=== PATIENT | male | born 1970 | race Caucasian/White ===

== ENCOUNTER 2017-05-13 22:53 | Emergency (ER) | payer SELFPAY ==
[2017-05-13 23:21] VITALS: BP 137/86; PULSE 80; TEMP 99.1; BMI 31.4
--- NOTE | 2017-05-13 23:22 | PDOC ---
History of Present Illness <Joy Tamez - Last Filed: 05/14/17 01:32> - History of Present Illness Initial Comments: 05/13/17 23:58 Mr. Thomas Terrazas is a 47 yo male w/ pmh of HTN who presents complaining of rash to groin. He reports he has had the rash for approximately 4 months. He went to [facility] to be evaluated approximately a month and a half ago and was given a cream, then returned a month ago for the same problem and received amoxicillin, a steroid, and 2 different creams (one of which was nystatin). He reports using all of it but that it has not had any effect. The patient denies chest pain, shortness of breath, headache and dizziness. Denies fever, chills, nausea, vomit, diarrhea and constipation. Denies dysuria, frequency, urgency and hematuria. Allergies:NKDA <Ramsey Lucas - Last Filed: 05/14/17 01:50> - General Chief Complaint: Rash Stated Complaint: PAIN Time Seen by Provider: 05/13/17 23:21 Past History <Joy Tamez - Last Filed: 05/14/17 01:32> - Suicide/Smoking/Psychosocial Hx Smoking History: Never smoked <Ramsey Lucas - Last Filed: 05/14/17 01:50> - Past Medical History Allergies/Adverse Reactions: Allergies Allergy/AdvReac Type Severity Reaction Status Date / Time No Known Allergies Allergy Verified 05/13/17 23:00 Home Medications: Ambulatory Orders Metformin HCl [Glucophage -] 500 mg PO BID #14 tablet 05/13/17 Metformin HCl [Glucophage] 500 mg PO BID #60 tablet 05/14/17 Nystatin Powder [Nystop Powder -] 1 applic TP BID #60 g 05/14/17 Terbinafine HCl [Lamisil] 250 mg PO DAILY #30 tablet 05/14/17 Review of Systems - Review of Systems Comments:: 05/14/17 00:00 GENERAL/CONSTITUTIONAL: No fever or chills. No weakness. HEAD, EYES, EARS, NOSE AND THROAT: No change in vision. No ear pain or discharge. No sore throat. CARDIOVASCULAR: No chest pain or shortness of breath RESPIRATORY: No cough, wheezing, or hemoptysis. GASTROINTESTINAL: No nausea, vomiting, diarrhea or constipation. GENITOURINARY: No dysuria, frequency, or change in urination. MUSCULOSKELETAL: No joint or muscle swelling or pain. No neck or back pain. SKIN: +1 1/2 months of Groin rash that he reports roasdo throughout the day NEUROLOGIC: No headache, vertigo, loss of consciousness, or change in strength/ sensation. ENDOCRINE: No increased thirst. No abnormal weight change HEMATOLOGIC/LYMPHATIC: No anemia, easy bleeding, or history of blood clots. ALLERGIC/IMMUNOLOGIC: No hives or skin allergy. <Ramsey Lucas - Last Filed: 05/14/17 01:50> *Physical Exam - Vital Signs Last Vital Signs Temp Pulse Resp BP Pulse Ox 99.1 F 80 20 137/86 100 05/13/17 23:01 05/13/17 23:01 05/13/17 23:01 05/13/17 23:01 05/13/17 23:01 <Joy Tamez - Last Filed: 05/14/17 01:32> - Vital Signs Last Vital Signs Temp Pulse Resp BP Pulse Ox 99.1 F 80 20 137/86 100 05/13/17 23:01 05/13/17 23:01 05/13/17 23:01 05/13/17 23:01 05/13/17 23:01 - Physical Exam Comments: 05/14/17 00:01 GENERAL: Awake, alert, and fully oriented, in no acute distress HEAD: No signs of trauma, normocephalic, atraumatic EYES: PERRLA, EOMI, sclera anicteric, conjunctiva clear ENT: Auricles normal inspection, hearing grossly normal, nares patent, oropharynx clear without exudates. Moist mucosa NECK: Normal ROM, supple, no lymphadenopathy, JVD, or masses LUNGS: No distress, speaks full sentences, clear to auscultation bilaterally HEART: Regular rate and rhythm, normal S1 and S2, no murmurs, rubs or gallops, peripheral pulses normal and equal bilaterally. ABDOMEN: Soft, nontender, normoactive bowel sounds. No guarding, no rebound. No masses EXTREMITIES: Normal inspection, Normal range of motion, no edema. No clubbing or cyanosis. NEUROLOGICAL: Cranial nerves II through XII grossly intact. Normal speech, normal gait, no focal sensorimotor deficits SKIN: +Impressive Austin-like rash involving entire groin and extending to thighs on either side. <Ramsey Lucas - Last Filed: 05/14/17 01:50> ED Treatment Course - Medications Given in the ED: ED Medications Discontinued Medications Generic Name Dose Route Start Last Admin Trade Name Jeremy PRN Reason Stop Dose Admin Fluconazole 200 mg 05/13/17 23:50 05/14/17 00:11 Diflucan - PO 05/13/17 23:51 200 mg ONCE ONE Administration Metformin HCl 1,000 mg 05/13/17 23:51 05/14/17 00:11 Glucophage - PO 05/13/17 23:52 1,000 mg ONCE ONE Administration <Joy Tamez - Last Filed: 05/14/17 01:32> Medical Decision Making - Medical Decision Making 05/14/17 00:02 Mr. Thomas Terrazas is a 47 yo male w/ pmh of HTN who presents with austin rash of groin. Patient also noted to have blood sugar of 200 via fingerstick. Suspect patient is diabetic and this is etiology of infection. Diflucan given for symptomatic treatment in conjunction with metformin. Will send temporary script to pt's pharmacy for metformin and have follow-up in residency clinic later this week. 05/14/17 01:49 Patient verbalized understanding and agreement and will follow-up with resident clinic as discussed. <Ramsey Lucas - Last Filed: 05/14/17 01:50> *DC/Admit/Observation/Transfer - Discharge Dispostion Admit: No <Joy Tamez - Last Filed: 05/14/17 01:32> <Ramsey Lucas - Last Filed: 05/14/17 01:50> Diagnosis at time of Disposition: Candidal balanitis Diabetes Qualifiers: Diabetes mellitus type: type 2 Diabetes mellitus complication status: with unspecified complications Diabetes mellitus penitentiary insulin use: without penitentiary use Qualified Code(s): E11.8 - Type 2 diabetes mellitus with unspecified complications - Discharge Dispostion Disposition: HOME Condition at time of disposition: Stable - Prescriptions Prescriptions: Metformin HCl [Glucophage] 500 mg PO BID #60 tablet Metformin HCl [Glucophage -] 500 mg PO BID #14 tablet Nystatin Powder [Nystop Powder -] 1 applic TP BID #60 g Terbinafine HCl [Lamisil] 250 mg PO DAILY #30 tablet - Referrals Referrals: Yovani Reeder MD [Staff Physician] - Delon Lind MD [Staff Physician] - - Patient Instructions Printed Discharge Instructions: Type 2 Diabetes, DI for [place] Print Language: ARMENIAN
[2017-05-13] MEDS ORDERED: FLUCONAZOLE 100 MG TABLET (UD) PO ONE (23:50)
[2017-05-13] MEDS ORDERED: metFORMIN HCL 500 MG TABLET (FP) PO ONE (23:51)
[2017-05-14] MEDS ORDERED: FLUCONAZOLE 100 MG TABLET (UD) ONE (00:05)
[2017-05-14] MEDS ORDERED: metFORMIN HCL 500 MG TABLET (FP) ONE (00:06)
--- NOTE | 2017-05-14 01:32 | PDOC ---
Attending Attestation - Resident Resident Name: Ramsey Lucas - ED Attending Attestation I have performed the following: I have examined & evaluated the patient, The case was reviewed & discussed with the resident, I agree w/resident's findings & plan - HPI HPI: 05/14/17 01:31 Pt comes with candidal infection on penis and entire groin. He is being treated with 2 types of steroids and antibiotics with no relief. Pt was also given a tiny tube of nystatin cream. - Physicial Exam PE: 05/14/17 01:32 Agree with resident exam. - Medical Decision Making 05/14/17 01:32 Pt has elevated blood sugar. Pt will be treated with glucophage and one dose of diflucan here and nystatin powder to go; he will also be given a month's supply of terbenafine. He needs to follow with PMD or with dermatology. He understands that he needs to control his blood sugar. 05/14/17 21:00
== END 2017-05-14 01:49 | disposition home or self-care (01) ==
LOC: JER 22:53
DX: B37.42 Candidal balanitis (principal); E11.9 Type 2 diabetes mellitus without complications; Z79.84 Long term (current) use of oral hypoglycemic drugs
CPT/HCPCS: 82962; 99281-25

== ENCOUNTER 2018-06-17 02:16 | Observation (INO) | payer OTHER ==
[2018-06-17 03:29] LABS: BASO % 0.5 % (0-2.0); EOS % 3.3 % (0-4.5); HEMATOCRIT 43.1 % (35.4-49); LYMPH % 46.7 % (8-40); MCH 30.2 pg (25.7-33.7); MCHC 34.8 g/dl (32.0-35.9); MEAN CELL VOLUME 86.7 fl (80-96); MEAN PLT VOLUME 8.9 fl (7.5-11.1); MONO % 5.8 % (3.8-10.2); NEUT % 43.7 % (42.8-82.8); PLATELET COUNT 191 K/MM3 (134-434); RBC 4.97 M/mm3 (4.00-5.60); RDW 13.3 % (11.9-15.9); WHITE BLOOD COUNT 6.6 K/mm3 (4.0-10.0)
[2018-06-17 03:32] VITALS: BMI 28.0
--- NOTE | 2018-06-17 03:33 | PDOC ---
History of Present Illness <Joy Tamez - Last Filed: 06/17/18 05:06> - General History Source: Family Exam Limitations: Clinical Condition - History of Present Illness Initial Comments: 06/17/18 03:27 Patient is a 48M with history of HTN, HLD here today complaining of altered mental status. Family states that their father drank a large amount of alcohol today in response to stress at home. They brought him into the ED because they were worried because he drank to the point where may not be breathing. Patient vomited. No history of suicidal ideation/attempts. No cardiac issues. Patient was brought in by private vehicle. <Delon Bains - Last Filed: 06/17/18 07:12> - General Chief Complaint: Alcohol intoxication Stated Complaint: INTOX Past History <Joy Tamez - Last Filed: 06/17/18 05:06> - Past Medical History COPD: No - Suicide/Smoking/Psychosocial Hx Smoking History: Never smoked Substance Use Type: None <Delon Bains - Last Filed: 06/17/18 07:12> - Past Medical History Allergies/Adverse Reactions: Allergies Allergy/AdvReac Type Severity Reaction Status Date / Time No Known Allergies Allergy Verified 05/13/17 23:00 Home Medications: Ambulatory Orders metFORMIN HCL [Glucophage -] 500 mg PO BID #14 tablet 05/13/17 Metformin HCl [Glucophage] 500 mg PO BID #60 tablet 05/14/17 Nystatin Powder [Nystop Powder -] 1 applic TP BID #60 g 05/14/17 Terbinafine HCl [Lamisil] 250 mg PO DAILY #30 tablet 05/14/17 Review of Systems - Review of Systems Able to Perform ROS?: No (2/2 clinical condition) <Delon Bains - Last Filed: 06/17/18 07:12> *Physical Exam - Vital Signs Last Vital Signs Temp Pulse Resp BP Pulse Ox 98.5 F 78 19 123/76 100 06/17/18 02:23 06/17/18 02:23 06/17/18 02:23 06/17/18 02:23 06/17/18 02:23 <Joy Tamez - Last Filed: 06/17/18 05:06> - Physical Exam Comments: 06/17/18 03:33 GENERAL: Somnolent, protecting airway, vomit on sweater HEAD: No signs of trauma, normocephalic, atraumatic EYES: PERRLA, sclera anicteric, conjunctiva clear ENT: Auricles normal inspection, hearing grossly normal, nares patent, oropharynx clear without exudates. Moist mucosa NECK: Normal ROM, supple, no lymphadenopathy, JVD, or masses LUNGS: No distress, increased lung sounds on right HEART: Regular rate and rhythm, normal S1 and S2, no murmurs, rubs or gallops, peripheral pulses normal and equal bilaterally. ABDOMEN: Soft, nontender, normoactive bowel sounds. No guarding, no rebound. No masses EXTREMITIES: Normal inspection, Normal range of motion, no edema. No clubbing or cyanosis. NEUROLOGICAL: No focal deficit noted, but patient not able to cooperate with exam. No facial droop, no effort with all limbs, no eye deviation SKIN: Warm, Dry, normal turgor, no rashes or lesions noted. <Delon Bains - Last Filed: 06/17/18 07:12> Moderate Sedation - Procedure Monitoring Vital Signs: Procedure Monitoring Vital Signs Temperature 98.5 F 06/17/18 02:23 Pulse Rate 78 06/17/18 02:23 Respiratory Rate 19 06/17/18 02:23 Blood Pressure 123/76 06/17/18 02:23 O2 Sat by Pulse Oximetry (%) 100 06/17/18 02:23 <Joy Tamez - Last Filed: 06/17/18 05:06> ED Treatment Course - LABORATORY CBC & Chemistry Diagram: 06/17/18 03:13 06/17/18 03:13 - ADDITIONAL ORDERS Additional order review: Laboratory Results 06/17/18 06/17/18 06/17/18 03:13 03:13 03:13 Sodium 139 Potassium 3.1 L Chloride 101 Carbon Dioxide 26 Anion Gap 12 BUN 17 Creatinine 1.1 Creat Clearance w eGFR > 60 POC Glucometer Random Glucose 154 H Calcium 8.2 L Total Bilirubin 0.1 L AST 32 ALT 43 Alkaline Phosphatase 119 H Creatine Kinase 409 H Troponin I < 0.02 Total Protein 7.5 Albumin 4.0 Salicylates < 1.7 L Acetaminophen < 2.0 L Alcohol, Quantitative 477.5 H Acetone, Qual Negative 06/17/18 02:44 Sodium Potassium Chloride Carbon Dioxide Anion Gap BUN Creatinine Creat Clearance w eGFR POC Glucometer 172 Random Glucose Calcium Total Bilirubin AST ALT Alkaline Phosphatase Creatine Kinase Troponin I Total Protein Albumin Salicylates Acetaminophen Alcohol, Quantitative Acetone, Qual 06/17/18 06/17/18 03:13 02:44 RBC 4.97 MCV 86.7 MCHC 34.8 RDW 13.3 MPV 8.9 Neutrophils % 43.7 Lymphocytes % 46.7 H Monocytes % 5.8 Eosinophils % 3.3 Basophils % 0.5 POC Glucometer 172 - Medications Given in the ED: ED Medications Discontinued Medications Generic Name Dose Route Start Last Admin Trade Name Bertrandq PRN Reason Stop Dose Admin Magnesium Sulfate 2 gm 06/17/18 04:00 06/17/18 04:07 Magnesium Sulfate IVPB 06/17/18 04:01 2 gm ONCE ONE Administration Sodium Chloride 1,000 ml 06/17/18 03:38 06/17/18 03:56 Normal Saline - IV 06/17/18 03:39 1,000 ml ONCE ONE Administration <Joy Tamez - Last Filed: 06/17/18 05:06> - LABORATORY CBC & Chemistry Diagram: 06/17/18 03:13 06/17/18 03:13 - ADDITIONAL ORDERS Additional order review: Laboratory Results 06/17/18 02:44 POC Glucometer 172 06/17/18 02:44 POC Glucometer 172 - RADIOLOGY Radiology Studies Ordered: Category Date Time Status CXRPORT [CHEST X-RAY PORTABLE*] [RAD] Stat Radiology 06/17/18 03:16 Ordered <Delon Bains - Last Filed: 06/17/18 07:12> Medical Decision Making - Medical Decision Making 06/17/18 03:36 Patient is 48M here today with ams, likely alcohol intoxication. Vitals normal and stable. Code serrano called due to concern about possible brain bleed. Delay in care caused by IT issues. No focal deficits on exam. FSG normal. Will evaluate with cbc, cmp, etoh, tylenol, salicylate levels, ekg, cxr. 06/17/18 07:11 CBC shows leukocytosis. CMP reassuring. ETOH nearly 500. CXR shows RLL infiltrate. Covered with ceftriaxone and metronidazole. CT head normal. D/w Dr Cox, accepted. <Delon Bains - Last Filed: 06/17/18 07:12> *DC/Admit/Observation/Transfer - Discharge Dispostion Decision to Admit order: Yes <Joy Tamez - Last Filed: 06/17/18 05:06> <Delon Bains - Last Filed: 06/17/18 07:12> Diagnosis at time of Disposition: Alcohol intoxication, Altered mental state, Aspiration pneumonia - Discharge Dispostion Condition at time of disposition: Guarded
[2018-06-17] MEDS ORDERED: SODIUM CHLORIDE 0.9% 500 ML INFUS.BAG IV ONE (03:38)
[2018-06-17 03:57] LABS: ALK PHOS 119 U/L (45-117); ANION GAP 12 MMOL/L (8-16); BILIRUBIN,TOTAL 0.1 mg/dL (0.2-1); BLOOD UREA NITROGEN 17 mg/dL (7-18); CALCIUM 8.2 mg/dL (8.5-10.1); CHLORIDE 101 mmol/L (98-107); CO2 26 mmol/L (21-32); CREATININE 1.1 mg/dL (0.55-1.3); GLUCOSE,RANDOM 154 mg/dL (74-106); POTASSIUM 3.1 mmol/L (3.5-5.1); SGOT/AST 32 U/L (15-37); SGPT/ALT 43 U/L (13-61); SODIUM 139 mmol/L (136-145); TOT PROT 7.5 g/dl (6.4-8.2)
[2018-06-17] MEDS ORDERED: MAGNESIUM SULF 50% (8.12 MEQ/2 ML-1 GM VIAL) IVPB ONE (04:00)
[2018-06-17] MEDS ORDERED: MAGNESIUM SULF 50% (8.12 MEQ/2 ML-1 GM VIAL) ONE (04:03)
[2018-06-17] MEDS ORDERED: KCL 10 MEQ IVPB 30 MEQ/300 ML INFUS.BAG IVPB ONE (04:08)
[2018-06-17] MEDS: KCL 10 MEQ IVPB 10 MEQ/100 ML INFUS.BAG IVPB SCH ×3 (04:22→06:10)
[2018-06-17 04:43] LABS: ACETONE SERUM NEGATIVE (NEGATIVE)
[2018-06-17] MEDS ORDERED: CEFTRIAXONE 1 GM/50 ML BAG ONE (05:02)
--- NOTE | 2018-06-17 05:07 | PDOC ---
Attending Attestation - Resident Resident Name: Delon Bains - ED Attending Attestation I have performed the following: I have examined & evaluated the patient, The case was reviewed & discussed with the resident, I agree w/resident's findings & plan - HPI HPI: 06/17/18 05:01 Pt had an argument with and began binge drinking today. Brought by his 2 adult kids and stepmom. Pt appers to be snoring and somnolent. Unclear if this is ETOH severe intox, stroke, or aspiration pneumonia. Pt has coarse breath sounds. 06/17/18 05:03 - Physicial Exam PE: 06/18/18 03:35 Agree with resident exam - Medical Decision Making 06/17/18 05:[address] done and it is normal. Pt has normal labs. His ETOH level is high. Pt has negative salicylate and negative ttylenol screen. Pt has CXR that shows congestive changes Heart Score/ECG Review - ECG Intrepretation Rhythm: Regular Rhythm - Redway Redway: Normal - P and OH Delta Wave(s) Present: No WPW: No - ST and T Early Repolarization: No Non Specific ST-T Wave changes: No Flattened T Waves: No Prolonged Q-T Interval: No - ECG Impressions Normal ECG: Yes Non-specific ST Elevation: No Ischemic Changes: No Bradycardia: No Torsades renny Pointes: No
--- NOTE | 2018-06-17 05:17 | PN ---
Teaching Attending Note Name of Resident: Luiz Wade ATTENDING PHYSICIAN STATEMENT I saw and evaluated the patient. I reviewed the resident's note and discussed the case with the resident. I agree with the resident's findings and plan as documented. SUBJECTIVE: Patient is a 48 year old man with PMH of NIDDM, HTN and HLD brought in by family for altered mental status and alcohol intoxication. Family states that their father drank a large amount of alcohol today following an argument with his . They brought him into the ER because they were worried because he drank to the point where may not be breathing. Patient vomited. No history of suicidal ideation/attempts. No cardiac issues. Patient was brought in by private vehicle. On arrival in the ER, a code serrano was called due to the suspicion for CVA. His head CT was negative and blood alcohol level was 477.5 OBJECTIVE: Somnolent but arousable Vital Signs Period Temp Pulse Resp BP Sys/Childs Pulse Ox Last 24 Hr 98.5 F 78 19 123/76 100 HEENT: No Jaundice, eye redness or discharge, PERRLA, EOMI. Normocephalic, atraumatic. External ears are normal. No nasal discharge. Neck: Supple, nontender. No palpable adenopathy or thyromegaly. No JVD Chest: Good effort. Clear to auscultation and percussion. Heart: Regular. No S3, rub or murmur Abdomen: Not distended, soft, nontender and no HSM. No rebound or guarding. Normoactive bowel sounds. Ext: Peripheral pulses intact. No leg edema. Skin: Warm and dry. No petechiae, rash or ecchymosis. Neuro: Somnolent but arousable. Unable to follow commands. No tremors. Incompete neuro exam due to AMS. Moves all four extremities. Plantar reflexes are flexor and DTR are symmetric. Current Medications Generic Name Dose Route Start Last Admin Trade Name Freq PRN Reason Stop Dose Admin Potassium Chloride 10 meq in 100 mls @ 100 mls/hr 06/17/18 04:00 06/17/18 05: 03 Potassium Chloride 10 Meq Premix Ivpb - IVPB 06/17/18 06:59 100 mls/hr Q60M [place] Administration Metronidazole 500 mg in 100 mls @ 100 mls/hr 06/17/18 05:08 06/17/18 05:20 Flagyl 500mg Premixed Ivpb - IVPB 06/17/18 06:07 100 mls/hr ONCE ONE Administration Home Medications Medication Instructions Recorded metFORMIN HCL [Glucophage -] 500 mg PO BID #14 tablet 05/13/17 Metformin HCl [Glucophage] 500 mg PO BID #60 tablet 05/14/17 Nystatin Powder [Nystop Powder -] 1 applic TP BID #60 g 05/14/17 Terbinafine HCl [Lamisil] 250 mg PO DAILY #30 tablet 05/14/17 Abnormal Lab Results 06/17/18 06/17/18 06/17/18 03:13 03:13 03:13 Lymphocytes % 46.7 H Potassium 3.1 L Random Glucose 154 H Calcium 8.2 L Total Bilirubin 0.1 L Alkaline Phosphatase 119 H Creatine Kinase 409 H CK-MB (CK-2) 5.7 H Salicylates Acetaminophen Alcohol, Quantitative 477.5 H 06/17/18 03:13 Lymphocytes % Potassium Random Glucose Calcium Total Bilirubin Alkaline Phosphatase Creatine Kinase CK-MB (CK-2) Salicylates < 1.7 L Acetaminophen < 2.0 L Alcohol, Quantitative ASSESSMENT AND PLAN: 1. Alcohol intoxication - Treat with IV banana bag. Ensure airway protection. After initial banana bag, will continue IV NS in view of mild rhabdomyolysis. [facility] do neurochecks and [facility], fall and aspiration precautions. Treat with thiamine and folic acid and monitor electrolytes (Ca,Mg,K,P). Hypokalemia likely due to renal wasting and poor oral intake. Got IV MgSO4 in the ER. Will check serum Mg+ and treat with IV KCL. 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 Consult Psychiatry and content development specialist. May have aspirated when he vomited. ER staff report that his CXR showed RLL infiltrate - am unable to view his CXR due to [employer] technical issues. Will continue to treat aspiration pneumonia with IV Rocephin and Flagyl. 2. DM For now, we will hold the home diabetes drugs and implement sliding scale insulin regimen. Provide comprehensive diabetes care with patient teaching and counseling about the importance of adherence to prescribed diabetes regimen, euglycemia, eye care and foot care. 3. DVT prophylaxis - Lovenox 40 mg SQ q 24 hours. 4. Advance directives - Full code
--- NOTE | 2018-06-17 05:38 | HP ---
CHIEF COMPLAINT: Alcohol intoxication brought in by family PCP: [address] [place] [address] HISTORY OF PRESENT ILLNESS: at bedside. Pt is a 48 y/o M with a significant past medical history of NIDDM, HTN, and HLD who was brought in to [facility] by his family after he was found to be severely intoxicated. Pt's endorses that pt drank a whole bottle of tequila at around 11:20 pm yesterday evening (06/16). Pt was apparently under a high amount of stress and had an argument with his and this is what prompted him to consume the heavy quantity of alcohol. No history of any suicidal ideation or attempts. Jorge maggie was called upon arrival to the emergency room as a CVA was suspected. ER course was notable for: (1) CT Head Negative (2) Blood Alcohol 477.5 (3) Recent Travel: PAST MEDICAL HISTORY: NIDDM, HTN, HLD PAST SURGICAL HISTORY: Social History: Smoking: Alcohol: Drugs: Family History: Allergies No Known Allergies Allergy (Verified 05/13/17 23:00) HOME MEDICATIONS: Home Medications Medication Instructions Recorded metFORMIN HCL [Glucophage -] 500 mg PO BID #14 tablet 05/13/17 Metformin HCl [Glucophage] 500 mg PO BID #60 tablet 05/14/17 Nystatin Powder [Nystop Powder -] 1 applic TP BID #60 g 05/14/17 Terbinafine HCl [Lamisil] 250 mg PO DAILY #30 tablet 05/14/17 REVIEW OF SYSTEMS Unable to obtain. Pt nonresponsive. PHYSICAL EXAMINATION Vital Signs - 24 hr 06/17/18 02:23 Temperature 98.5 F Pulse Rate 78 Respiratory 19 Rate Blood Pressure 123/76 O2 Sat by Pulse 100 Oximetry (%) GENERAL: Nonresponsive, snoring HEAD: Atraumatic/ Normocephalic EYES: Sclera Clear. PERRL EARS, NOSE, THROAT: MMM LUNGS: Scattered Rhonchi. HEART: RRR S1S2 ABDOMEN: Soft nondistended nontender Extrem: No CCE. Laboratory Results - last 24 hr 06/17/18 06/17/18 06/17/18 02:44 03:13 03:13 WBC 6.6 RBC 4.97 Hgb 15.0 Hct 43.1 MCV 86.7 MCH 30.2 MCHC 34.8 RDW 13.3 Plt Count 191 MPV 8.9 Absolute Neuts (auto) 2.9 Neutrophils % 43.7 Lymphocytes % 46.7 H Monocytes % 5.8 Eosinophils % 3.3 Basophils % 0.5 Nucleated RBC % 0 Sodium Potassium Chloride Carbon Dioxide Anion Gap BUN Creatinine Creat Clearance w eGFR POC Glucometer 172 Random Glucose Calcium Total Bilirubin AST ALT Alkaline Phosphatase Creatine Kinase Creatine Kinase Index CK-MB (CK-2) Troponin I Total Protein Albumin Salicylates Acetaminophen Alcohol, Quantitative 477.5 H Acetone, Qual 06/17/18 06/17/18 03:13 03:13 WBC RBC Hgb Hct MCV MCH MCHC RDW Plt Count MPV Absolute Neuts (auto) Neutrophils % Lymphocytes % Monocytes % Eosinophils % Basophils % Nucleated RBC % Sodium 139 Potassium 3.1 L Chloride 101 Carbon Dioxide 26 Anion Gap 12 BUN 17 Creatinine 1.1 Creat Clearance w eGFR > 60 POC Glucometer Random Glucose 154 H Calcium 8.2 L Total Bilirubin 0.1 L AST 32 ALT 43 Alkaline Phosphatase 119 H Creatine Kinase 409 H Creatine Kinase Index 1.3 CK-MB (CK-2) 5.7 H Troponin I < 0.02 Total Protein 7.5 Albumin 4.0 Salicylates < 1.7 L Acetaminophen < 2.0 L Alcohol, Quantitative Acetone, Qual Negative ASSESSMENT/PLAN: Pt is a 48 y/o M with a significant past medical history of NIDDM, HTN, and HLD who was brought in to [facility] by his family after he was found to be severely intoxicated #Alcohol Intoxication - Blood Alcohol level 477.5 -Banana Bag -Monitor Electrolytes -HOB elevation -Production Planner Scheduler Consulted #Possible Aspiration pneumonia 2/2 Alcohol intoxication -Coarse breath sounds appreciated -I.V Metronidazole and Rocephin administered in ED -Chest XRAY in ED--> RLL Infiltrate -Repeat Chest XRAY in am -HOB elevation -CIWA Assessment Q6H #Hypokalemia -Potassium in ED 3.1 -3 rounds of 10 mEQ KCL administered in ED -Repeat BMP today. -Check Magnesium Level #FEN Banana Bag Monitor Electrolytes NPO Visit type - Emergency Visit Emergency Visit: Yes ED Registration Date: 06/17/18 Care time: The patient presented to the Emergency Department on the above date and was hospitalized for further evaluation of their emergent condition. - New Patient This patient is new to me today: Yes Date on this admission: 06/17/18 - Critical Care Critical Care patient: No
[2018-06-17 05:39] LABS: INR 0.87 (0.83-1.09); PROTHROMBIN TIME (PATIENT) 10.2 SEC (9.7-13.0)
[2018-06-17] MEDS ORDERED: FOLIC ACID INJECTION - 1 MG, THIAMINE HCL 100 MG, MULTIVIT INJECTION ADULT 10 ML in SOD... IVPB ONE (07:34)
[2018-06-17 10:34] LABS: HEMATOCRIT 39.1 % (35.4-49); HEMOGLOBIN 13.4 GM/dL (11.7-16.9); MCH 29.7 pg (25.7-33.7); MCHC 34.4 g/dl (32.0-35.9); MEAN CELL VOLUME 86.2 fl (80-96); MEAN PLT VOLUME 8.4 fl (7.5-11.1); PLATELET COUNT 197 K/MM3 (134-434); RBC 4.53 M/mm3 (4.00-5.60); RDW 13.7 % (11.9-15.9); WHITE BLOOD COUNT 12.2 K/mm3 (4.0-10.0)
[2018-06-17 10:47] LABS: INR 0.93 (0.83-1.09)
[2018-06-17 10:50] LABS: ACTIVATED PTT 26.9 SECONDS (25.2-36.5)
[2018-06-17 10:59] LABS: ALBUMIN 3.5 g/dl (3.4-5.0); ALK PHOS 102 U/L (45-117); ANION GAP 10 MMOL/L (8-16); BILIRUBIN,TOTAL 0.3 mg/dL (0.2-1); BLOOD UREA NITROGEN 14 mg/dL (7-18); CALCIUM 7.5 mg/dL (8.5-10.1); CHLORIDE 106 mmol/L (98-107); CO2 24 mmol/L (21-32); CREATININE 0.7 mg/dL (0.55-1.3); GLUCOSE,RANDOM 152 mg/dL (74-106); MAGNESIUM 2.5 mg/dL (1.8-2.4); POTASSIUM 3.4 mmol/L (3.5-5.1); SGOT/AST 23 U/L (15-37); SGPT/ALT 37 U/L (13-61); SODIUM 139 mmol/L (136-145); TOT PROT 6.9 g/dl (6.4-8.2)
[2018-06-17] MEDS ORDERED: SODIUM CHLORIDE 0.9%/KCL 20 MEQ/1,000 ML INFUS.BAG IV SCH (11:15)
[2018-06-17] MEDS ORDERED: D5-NS + 40 MEQ KCL - 40 MEQ/1,000 ML INFUS.BAG IV SCH (11:15)
--- NOTE | 2018-06-17 11:34 | PN ---
Physical Exam: SUBJECTIVE: Patient seen and examined, tearful, trying to get out of bed to go to bathroom, at bedside. Unable to provide ROS. OBJECTIVE: Vital Signs Period Temp Pulse Resp BP Sys/Childs Pulse Ox Last 24 Hr 98.5 F-98.5 F 76-88 18-19 116-125/74-80 97-100 GENERAL: awake, tearful, attempting to get out of bed to urinate Neck: soft, supple, no JVD Chest: no rales or wheezing but exam limited by lack of co-operation Abdomen:Soft, obese, NT, no voluntary or involuntary guarding or rigidity Extremities: no edema or tremors noted neuro: Awake, oriented to self, , but keeps crying, not answering further questions, facial symmetry, moves all extremities freely, further exam limited currently Laboratory Results - last 24 hr 06/17/18 06/17/18 06/17/18 02:44 03:13 03:13 WBC 6.6 RBC 4.97 Hgb 15.0 Hct 43.1 MCV 86.7 MCH 30.2 MCHC 34.8 RDW 13.3 Plt Count 191 MPV 8.9 Absolute Neuts (auto) 2.9 Neutrophils % 43.7 Lymphocytes % 46.7 H Monocytes % 5.8 Eosinophils % 3.3 Basophils % 0.5 Nucleated RBC % 0 PT with INR INR PTT (Actin FS) Sodium Potassium Chloride Carbon Dioxide Anion Gap BUN Creatinine Creat Clearance w eGFR POC Glucometer 172 Random Glucose Calcium Phosphorus Magnesium Total Bilirubin AST ALT Alkaline Phosphatase Creatine Kinase Creatine Kinase Index CK-MB (CK-2) Troponin I Total Protein Albumin Salicylates Acetaminophen Alcohol, Quantitative 477.5 H Acetone, Qual 06/17/18 06/17/18 06/17/18 03:13 03:13 03:13 WBC RBC Hgb Hct MCV MCH MCHC RDW Plt Count MPV Absolute Neuts (auto) Neutrophils % Lymphocytes % Monocytes % Eosinophils % Basophils % Nucleated RBC % PT with INR 10.20 INR 0.87 PTT (Actin FS) Sodium 139 Potassium 3.1 L Chloride 101 Carbon Dioxide 26 Anion Gap 12 BUN 17 Creatinine 1.1 Creat Clearance w eGFR > 60 POC Glucometer Random Glucose 154 H Calcium 8.2 L Phosphorus Magnesium Total Bilirubin 0.1 L AST 32 ALT 43 Alkaline Phosphatase 119 H Creatine Kinase 409 H Creatine Kinase Index 1.3 CK-MB (CK-2) 5.7 H Troponin I < 0.02 Total Protein 7.5 Albumin 4.0 Salicylates < 1.7 L Acetaminophen < 2.0 L Alcohol, Quantitative Acetone, Qual Negative 06/17/18 06/17/18 06/17/18 10:21 10:21 10:21 WBC 12.2 H RBC 4.53 Hgb 13.4 Hct 39.1 MCV 86.2 MCH 29.7 MCHC 34.4 RDW 13.7 Plt Count 197 MPV 8.4 Absolute Neuts (auto) Neutrophils % Lymphocytes % Monocytes % Eosinophils % Basophils % Nucleated RBC % PT with INR 11.00 INR 0.93 PTT (Actin FS) 26.9 Sodium 139 Potassium 3.4 L Chloride 106 Carbon Dioxide 24 Anion Gap 10 BUN 14 Creatinine 0.7 Creat Clearance w eGFR > 60 POC Glucometer Random Glucose 152 H Calcium 7.5 L Phosphorus 3.0 Magnesium 2.5 H Total Bilirubin 0.3 AST 23 ALT 37 Alkaline Phosphatase 102 Creatine Kinase Creatine Kinase Index CK-MB (CK-2) Troponin I Total Protein 6.9 Albumin 3.5 Salicylates Acetaminophen Alcohol, Quantitative Acetone, Qual Home Medications Medication Instructions Recorded metFORMIN HCL [Glucophage -] 500 mg PO BID #14 tablet 05/13/17 Metformin HCl [Glucophage] 500 mg PO BID #60 tablet 05/14/17 Nystatin Powder [Nystop Powder -] 1 applic TP BID #60 g 05/14/17 Terbinafine HCl [Lamisil] 250 mg PO DAILY #30 tablet 05/14/17 Active Medications Generic Name Dose Route Start Last Admin Trade Name Freq PRN Reason Stop Dose Admin Heparin Sodium (Porcine) 5,000 unit 06/17/18 14:00 Heparin - SQ TID [facility] Folic Acid 1 mg/ Thiamine HCl 1,000 mls @ 125 mls/hr 06/17/18 07:34 06/17/18 08:43 100 mg/ Multivitamins/Minerals IVPB 06/17/18 15:33 125 mls/hr 10 ml/ Sodium Chloride ONCE ONE Administration Potassium Chloride/Sodium Chloride 20 meq in 1,000 mls @ 100 mls/hr 06/17/18 11:15 Ns+20 Meq Kcl - IV ASDIR [facility] Ampicillin Sodium/Sulbactam 100 mls @ 200 mls/hr 06/17/18 15:00 Sodium 1.5 gm/ Sodium Chloride IVPB Q6H-IV [place] Insulin Aspart 1 vial 06/17/18 11:00 Novolog Vial Sliding Scale - SQ ACHS [place] Protocol CXR image and result reviewed CT brain (prelim) per ED notes normal ASSESSMENT/PLAN: 48 yom with PMHx of NIDDM, HTN, HLD admitted with Alcohol intoxication and AMS, after reported argument -Acute alcohol intoxication -AMS, likely from above -?Depression -Hypokalemia -NIDDM -HTN -HLD Plan: at bedside, reports patient had an argument with her and had a whole bottle of vodka with intent to hurt himself. Patient currently tearful, but not answering any further questions. 1:1 observation and psych consult, discussed with . reports patient drinks once a week otherwise, but denies ETOH abuse concerns or prior withdrawal. Jorge hsieh called in ED, but presentation suggestive of acute alcohol intoxication rather than neurological process Change IVF to NS with K. Add folate/thiamine. Hold off on benzos for now while patient intoxicated. [facility] called, closed currently, confirm home meds ISS Start clears after bedside swallow eval, as patient wakes up. repeat CXR. Change abx to unasyn, d/c in 24 hours if no clear infiltrate, afebrile and normal WBC. DVTPPX lovenox if non ambulatory > 48 hours DVTPPX start protonix Dispo d/c in 24 hours if mental status improved, seen by psych, and no new concerns. Visit type - Emergency Visit Emergency Visit: Yes ED Registration Date: 06/17/18 Care time: The patient presented to the Emergency Department on the above date and was hospitalized for further evaluation of their emergent condition. - New Patient This patient is new to me today: Yes Date on this admission: 06/17/18 - Critical Care Critical Care patient: No - Discharge Referral Referred to [facility] No
[2018-06-17] MEDS: INSULIN SLIDING SCALE (NOVOLOG) 1 VIAL SQ SCH ×2 (11:47→17:19)
[2018-06-17] MEDS ORDERED: INSULIN (NOVOLOG) ASPART 100 UNITS/ML 10ML VIAL ONE (12:01)
--- NOTE | 2018-06-17 12:55 | EKG ---
Test Reason : Blood Pressure : / mmHG Vent. Rate : 084 BPM Atrial Rate : 084 BPM P-R Int : 194 ms QRS Dur : 116 ms QT Int : 376 ms P-R-T Axes : 041 -27 001 degrees QTc Int : 444 ms NORMAL SINUS RHYTHM LEFT VENTRICULAR HYPERTROPHY NONSPECIFIC ST ABNORMALITY LEFTWARD AXIS ABNORMAL ECG NO PREVIOUS ECGS AVAILABLE Confirmed by HARSHIL PELAEZ MD ([id number]) on 06/17/2018 12:55:29 PM Referred By: Confirmed By:HARSHIL PELAEZ MD
[2018-06-17] MEDS ORDERED: HEPARIN NA (PORCINE) 5,000 UNITS/ML 1ML VIAL SQ SCH (14:00)
[2018-06-17] MEDS ORDERED: AMPICILLIN NA/SULBACTAM NA 1.5 GM in SODIUM CHLORIDE 100 ML IVPB SCH (15:00)
[2018-06-17 16:29] VITALS: BP 116/78; PULSE 74; TEMP 98.9
--- NOTE | 2018-06-17 17:16 | CON.PSY ---
Psychiatry Consult Chief Complaint: 48 year old [place] male came to ER totally drunk, apparantly was upset over his mom in [place] being sick. Spoke to Family and Daughter who treport no Psych Illness or Substance abuse. Patient no longer talking about killing himself. No historty of suicidal behaviour in the past. - Previous Psychiatric Treatment Outpatient: None Inpatient: None - Previous Substance Abuse Treatment Outpatient: None Inpatient: None - Current Medications Current Medications: Active Medications Folic Acid (Folic Acid -) 1 mg PO DAILY [facility] Potassium Chloride/Sodium Chloride (Ns+20 Meq Kcl -) 20 meq in 1,000 mls @ 100 mls/hr IV ASDIR [place] Last Admin: 06/17/18 11:49 Dose: Not Given Insulin Aspart (Novolog Vial Sliding Scale -) 1 vial SQ ACHS [facility]; Protocol Last Admin: 06/17/18 11:47 Dose: 2 units Thiamine HCl (Vitamin B1 -) 100 mg PO DAILY [facility] - Allergies Allergies: Allergies Allergy/AdvReac Type Severity Reaction Status Date / Time No Known Allergies Allergy Verified 05/13/17 23:00 - Current Living Status Usual Living Arrangement: With Spouse - Current Mental Status Evaluation Appearance: Well Groomed Attitude: Cooperative - Affect Affect: Constrictive Appropriateness: Appropriate to Content - Mood Mood: Euthymic - Speech/Language Expressive: Coherent - Psychomotor Activity Psychomotor Activity: Normal - Thought Process Thought Process: Intact - Thought Content Hallucinations: Absent Delusions: Absent - Self Perception Self Perception: No Impairment - Cognition Attention: Alert Orientation: Time Memory, Immediate Recall: Intact Memory, Short Term: 3/3 Memory, Remote with Promptin/3 - Concentration Serial Sevens Intact: Yes Simple Calculations Intact: Yes - Abstraction Proverb Interpretation: Intact Judgement: Minimally Impaired - Insight Insight: Intact - Suicidal Ideation Suicidal Ideation: No Assessment/Plan 1) patient recovered from acute intoxication. NOt voicing any suicidal of self damaging behaviour. 2) Discharge HOme with Family. No follow up needed.
--- NOTE | 2018-06-17 19:18 | DS ---
Physical Exam: SUBJECTIVE: Patient seen and examined, awake, pleasant, conversant, family at bedside, good spirits, no pain, dyspnea, fevers, chills or cough. Denies any SI or HI. OBJECTIVE: Vital Signs Period Temp Pulse Resp BP Sys/Childs Pulse Ox Last 24 Hr 98.5 F-98.9 F 74-88 - 116-125/74-80 97-100 PHYSICAL EXAM GENERAL: The patient is awake, alert, and fully oriented, in no acute distress. HEAD: Normal with no signs of trauma. EYES: PERRL, extraocular movements intact, sclera anicteric, conjunctiva clear. ENT: Ears normal, nares patent, oropharynx clear without exudates, moist mucous membranes. NECK: Trachea midline, full range of motion, supple. LUNGS: Breath sounds equal, clear to auscultation bilaterally, no wheezes, no crackles, no accessory muscle use. HEART: Regular rate and rhythm, S1, S2 ABDOMEN: Soft, nontender, nondistended, normoactive bowel sounds, no guarding, no rebound EXTREMITIES: 2+ pulses, warm, well-perfused, no edema. NEUROLOGICAL: AAOX3, Cranial nerves II through XII grossly intact. Normal speech , gait not observed. PSYCH: Normal mood, normal affect. SKIN: Warm, dry, normal turgor, no rashes or lesions noted. LABS Laboratory Results - last 24 hr 06/17/18 06/17/18 06/17/18 02:44 03:13 03:13 WBC 6.6 RBC 4.97 Hgb 15.0 Hct 43.1 MCV 86.7 MCH 30.2 MCHC 34.8 RDW 13.3 Plt Count 191 MPV 8.9 Absolute Neuts (auto) 2.9 Neutrophils % 43.7 Lymphocytes % 46.7 H Monocytes % 5.8 Eosinophils % 3.3 Basophils % 0.5 Nucleated RBC % 0 PT with INR INR PTT (Actin FS) Sodium Potassium Chloride Carbon Dioxide Anion Gap BUN Creatinine Creat Clearance w eGFR POC Glucometer 172 Random Glucose Calcium Phosphorus Magnesium Total Bilirubin AST ALT Alkaline Phosphatase Creatine Kinase Creatine Kinase Index CK-MB (CK-2) Troponin I Total Protein Albumin Salicylates Acetaminophen Alcohol, Quantitative 477.5 H Acetone, Qual 06/17/18 06/17/18 06/17/18 03:13 03:13 03:13 WBC RBC Hgb Hct MCV MCH MCHC RDW Plt Count MPV Absolute Neuts (auto) Neutrophils % Lymphocytes % Monocytes % Eosinophils % Basophils % Nucleated RBC % PT with INR 10.20 INR 0.87 PTT (Actin FS) Sodium 139 Potassium 3.1 L Chloride 101 Carbon Dioxide 26 Anion Gap 12 BUN 17 Creatinine 1.1 Creat Clearance w eGFR > 60 POC Glucometer Random Glucose 154 H Calcium 8.2 L Phosphorus Magnesium Total Bilirubin 0.1 L AST 32 ALT 43 Alkaline Phosphatase 119 H Creatine Kinase 409 H Creatine Kinase Index 1.3 CK-MB (CK-2) 5.7 H Troponin I < 0.02 Total Protein 7.5 Albumin 4.0 Salicylates < 1.7 L Acetaminophen < 2.0 L Alcohol, Quantitative Acetone, Qual Negative 06/17/18 06/17/18 06/17/18 10:21 10:21 10:21 WBC 12.2 H RBC 4.53 Hgb 13.4 Hct 39.1 MCV 86.2 MCH 29.7 MCHC 34.4 RDW 13.7 Plt Count 197 MPV 8.4 Absolute Neuts (auto) Neutrophils % Lymphocytes % Monocytes % Eosinophils % Basophils % Nucleated RBC % PT with INR 11.00 INR 0.93 PTT (Actin FS) 26.9 Sodium 139 Potassium 3.4 L Chloride 106 Carbon Dioxide 24 Anion Gap 10 BUN 14 Creatinine 0.7 Creat Clearance w eGFR > 60 POC Glucometer Random Glucose 152 H Calcium 7.5 L Phosphorus 3.0 Magnesium 2.5 H Total Bilirubin 0.3 AST 23 ALT 37 Alkaline Phosphatase 102 Creatine Kinase Creatine Kinase Index CK-MB (CK-2) Troponin I Total Protein 6.9 Albumin 3.5 Salicylates Acetaminophen Alcohol, Quantitative Acetone, Qual 06/17/18 06/17/18 11:45 17:13 WBC RBC Hgb Hct MCV MCH MCHC RDW Plt Count MPV Absolute Neuts (auto) Neutrophils % Lymphocytes % Monocytes % Eosinophils % Basophils % Nucleated RBC % PT with INR INR PTT (Actin FS) Sodium Potassium Chloride Carbon Dioxide Anion Gap BUN Creatinine Creat Clearance w eGFR POC Glucometer 182 113 Random Glucose Calcium Phosphorus Magnesium Total Bilirubin AST ALT Alkaline Phosphatase Creatine Kinase Creatine Kinase Index CK-MB (CK-2) Troponin I Total Protein Albumin Salicylates Acetaminophen Alcohol, Quantitative Acetone, Qual HOSPITAL COURSE: Date of Admission:06/17/18 Date of Discharge: 06/17/18 Minutes to complete discharge: 35 Discharge Summary Reason For Visit: ALCOHOLIC INTOXICATION ASPIRATION PNEUMONIA AMS Hospital Course: 48 yom with PMHx of NIDDM, HTN, HLD admitted with Alcohol intoxication and AMS, after reported argument with . patient had CT head in ED negative for concerns. His blood alcohol level was noted above 400. He was placed on banana bag with electrolyte repletion. raised concerns about patient wanting to hurt himself after an argument and had 1 large bottle of tequila. He was placed on 1:1 constant observation, and psychiatry was consulted. He was seen by , when his mental status had improved and was deemed safe for discharge with no concerns. He received ceftriaxone and flagyl for concerns for aspiration. He is being discharged on short course of augmentin. He had mild rhabdomyolysis and was placed on hydration. His lipitor is being held on discharge. On discharge, his mental status was at baseline, patient awake and pleasant and was discharged in stable condition with family. Plan was discussed in detail with patient and family. Condition: Stable - Instructions Diet, Activity, Other Instructions: Strictly advise alcohol cessation. DRINK PLENTY OF FLUIDS. MEDICATIONS; Take antibiotic augmentin twice daily for 5 days Resume Chlorthalidone from tomorrow Do not take your cholesterol medication Lipitor for 1 week and resume after discussion with your doctor. FOLLOW UP; Follow up with your primary care physician in 1 week. Continue follow up to discuss your further diabetes management and starting medications. If you notice any new fevers, chills, cough, with sputum trouble breathing or any new concerns, please call 911 or come to the ED. Referrals: Keyana Kimball MD [Staff Physician] - 1 Week Disposition: HOME - Home Medications Comprehensive Discharge Medication List: Ambulatory Orders Amoxicillin/Potassium Clav [Augmentin 875-125 Tablet] 1 each PO BID #10 tablet 06/17/18 Chlorthalidone 25 mg PO DAILY 06/17/18 This patient is new to me today: Yes Date on this admission: 06/17/18 Emergency Visit: Yes ED Registration Date: 06/17/18 Care time: The patient presented to the Emergency Department on the above date and was hospitalized for further evaluation of their emergent condition. Critical Care patient: No - Discharge Referral [facility]erred [facility] No
[2018-06-18] MEDS ORDERED: CEFTRIAXONE 1,000 MG in DEXTROSE 5%-WATER - 50 ML IVPB ONE (07:26)
[2018-06-18] MEDS ORDERED: CEFTRIAXONE 1 GM in DEXTROSE 5%-WATER - 50 ML IVPB SCH (10:00)
[2018-06-18] MEDS ORDERED: THIAMINE HCL 100 MG TABLET (FP) PO SCH (10:00)
[2018-06-18] MEDS ORDERED: FOLIC ACID 1 MG TABLET (FP) PO SCH (10:00)
== END 2018-06-17 17:37 | disposition home or self-care (01) ==
LOC: JER 02:16 → INTOOBSV 05:08 → JERBED 05:08
PROVIDERS: ADMIT Internal Medicine; ATTEND Hospitalist
PROC: 3E03329 Introduction of Other Anti-infective into Peripheral Vein, Percutaneous Approach (ICD-10-PCS; principal; 2018-06-17)
PROC: 3E0337Z Introduction of Electrolytic and Water Balance Substance into Peripheral Vein, Percutaneous Approach (ICD-10-PCS; 2018-06-17)
PROC: 3E033GC Introduction of Other Therapeutic Substance into Peripheral Vein, Percutaneous Approach (ICD-10-PCS; 2018-06-17)
DX: F10.129 Alcohol abuse with intoxication, unspecified (principal); I10 Essential (primary) hypertension; E78.5 Hyperlipidemia, unspecified; E11.9 Type 2 diabetes mellitus without complications; R41.82 Altered mental status, unspecified; E87.6 Hypokalemia; J69.0 Pneumonitis due to inhalation of food and vomit; Z79.84 Long term (current) use of oral hypoglycemic drugs
CPT/HCPCS: 36415; 70450-TC; 71045-TC-FY; 80053; 80307; 82009; 82550; 82553; 82962; 83735; 84100; 84484; 85025; 85027; 85610; 85730; 93005; 93010; 96365; 96366; 99284-25; G0378; J7030